=== PATIENT | female | born 1960 | race Caucasian/White ===

== ENCOUNTER 2019-12-21 06:01 | Emergency (ER) | payer OTHER, SELFPAY ==
--- NOTE | ~2019-12-21 | XR_ITS ---
EXAMINATION: XR chest 2V DATE: 12/21/2019 07:52 INDICATION: Cough. Dyspnea. TECHNIQUE: Frontal and lateral views of the chest were obtained. COMPARISON: Chest 2 views 02/02/2008 FINDINGS: The chest demonstrates clear lungs without pneumonia, pleural effusion, or pneumothorax. Th e heart size is normal. IMPRESSION: 1. No acute cardiopulmonary disease. Reviewed, dictated and finalized at location A. 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
[2019-12-21 06:08] VITALS: BP 143/83; PULSE 85; RESP 15; TEMP 36.7; O2SAT 95
[2019-12-21] MEDS: SODIUM CHLORIDE 0.9% IV 1,000 ML 999 ML IV CONT (06:49)
[2019-12-21 06:52] LABS: Basophils Percent Auto 0.2 % (0.2-1.2); Eosinophils Percent Auto 0.2 % (0-4.4); Hemoglobin 13.2 g/dL (12.0-15.0); Immature Granulocyte Absolute 0.02 K/mm3 (0.00-0.031); Immature Granulocyte Percent A 0.4 % (0-0.5); Lymphocytes Absolute Auto 1.27 K/mm3 (0.9-3.2); Lymphocytes Percent Auto 27.7 % (18.3-44.2); Mean Corpuscular HGB Conc 32.2 g/dl (32-36); Mean Corpuscular Hemoglobin 30.4 pg (26-34); Mean Corpuscular Volume 94.5 fl (80-100); Mean Platelet Volume 9.3 fl (7.4-10.4); Monocytes Absolute Auto 0.6 K/mm3 (0.1-0.6); Monocytes Percent Auto 12.4 % (2.6-8.5); Neutrophils Absolute Auto 2.7 K/mm3 (1.3-6.7); Neutrophils Percent Auto 59.1 % (45.5-73.1); Platelet Count Result 211 k/mm3 (150-375); Red Blood Count 4.34 M/mm3 (4.2-5.4); Red Cell Distribution Width 13.4 % (11.5-14.5); White Blood Count 4.6 K/mm3 (4.5-10.0)
--- NOTE | 2019-12-21 06:52 | ECG_ITS ---
Measurements Intervals [place] Rate: 73 P: 21 GA: 137 QRS: 18 QRSD: 97 T: 0 QT: 375 QTc: 414 Interpretive Statements SINUS RHYTHM BORDERLINE T WAVE ABNORMALITY- INFERIOR LEADS BORDERLINE ECG Electronically Signed On 12-21-2019 7:09:51 BALE SEWER by Crow Smith D.O.
--- NOTE | 2019-12-21 06:54 | ED.GENADULT ---
HPI - General Adult General Chief complaint: Upper Respiratory Infection Stated complaint: cough/ congestion/ weakness Time Seen by Provider: 12/21/19 06:03 Source: patient and family Mode of arrival: ambulatory Limitations: no limitations History of Present Illness HPI narrative: The patient is a 59-year-old female who presents for evaluation of cough and shortness of breath. Patient reports over a 4-week history of productive cough. She states that she had been treated with doxycycline and is currently on a course of Levaquin. She reports that she was febrile yesterday to 101 Fahrenheit. She has not noticed much improvement despite antibiotics and steroid treatment. 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 She denies history of smoking, E cigarettes, or vaping. No recent car or travel. No lower extremity swelling, redness. No history of DVT. She reports chest pain only with coughing. She states that she began to feel short of breath this morning while taking a shower. Her shortness of breath worsens with exertion and improves at rest. Related Data Allergies Allergy/AdvReac Type Severity Reaction Status Date / Time Penicillins Allergy Mild RASH Verified 05/17/16 07:12 Sulfa (Sulfonamide Allergy Mild BLISTERS Verified 05/17/16 07:12 Antibiotics) IN MOUTH Review of Systems Review of Systems: Narrative: CONSTITUTIONAL: Reports fever EYES: Denies visual changes, redness, or discharge. ENT: Reports rhinorrhea and congestion CARDIOVASCULAR: Denies chest pain, palpitations, or edema. RESPIRATORY: Reports cough and shortness of breath GASTROINTESTINAL: Denies abdominal pain, nausea, vomiting, or diarrhea. GENITOURINARY: Denies dysuria or hematuria. SKIN: Denies rash or itching. MUSCULOSKELETAL: Denies back pain, joint pain, or myalgia. NEUROLOGIC: Denies headache, numbness, reports feeling weak and fatigued PMFSH Past Medical History Medical History (Updated 12/21/19 @ 08:40 by Zulema Castellanos MD) Hyperlipidemia Hypertension Social History Social History Gender identity (if verbalized by the patient): Female Exam Narrative: Exam Narrative: GENERAL: Well-appearing, well-nourished, and in no acute distress. HEAD: Normocephalic, atraumatic. EYES: PERRLA and EOMI. ENT: Nares clear, no rhinorrhea or epistaxis. Mucous membranes moist. NECK: Supple. CHEST: Upper airway rhonchi, coarse breath sounds, expiratory wheezing in left upper lobe, no crackles, no respiratory distress HEART: Regular rate and rhythm. No murmur heard. Normal peripheral pulses. ABDOMEN: Soft, nontender, nondistended, normal active bowel sounds. EXTREMITIES: Normal range of motion. No edema. No calf tenderness or erythema. SKIN: Warm, dry, no rash. NEURO: No focal deficits. Alert and oriented x3 Course Vital Signs Vital signs: Vital Signs Temperature 36.7 C 12/21/19 06:08 Pulse Rate 85 12/21/19 06:08 Respiratory Rate 15 12/21/19 06:08 Blood Pressure 143/83 H 12/21/19 06:08 Pulse Oximetry 95 12/21/19 06:08 Temperature 36.7 C 12/21/19 07:18 Pulse Rate 72 12/21/19 07:44 Respiratory Rate 14 12/21/19 07:44 Blood Pressure 143/83 H 12/21/19 06:08 Pulse Oximetry 95 12/21/19 06:08 Medical Decision Making MDM Narrative Medical decision making narrative: Patient presenting for evaluation of fever, continued cough despite outpatient antibiotics treatment for pneumonia. Patient been on doxycycline, now on a course of Levaquin. Vital signs are stable, no respiratory distress. She has coarse breath sounds, faint wheezing. Patient treated with DuoNeb treatment and did feel some improvement. Her chest x-ray shows no consolidation. No leukocytosis. She is influenza A positive. Onset of fever and symptoms over 36 hours ago, patient is not within the Tamiflu window. Shared decision-making occurred, patient declined Tamiflu treatment after d
[2019-12-21 07:05] LABS: Alanine Aminotransferase 44 U/L (4-35); Albumin Level 3.9 g/dL (3.5-5.1); Alkaline Phosphatase 87 U/L (38-126); Aspartate Amino Transferase 38 U/L (14-36); Bilirubin,Total 0.4 mg/dL (0.2-1.3); Blood Urea Nitrogen 22 mg/dL (7-17); Calcium 9.3 mg/dL (8.4-10.2); Carbon Dioxide 26 mmol/L (22-30); Chloride 103 mmol/L (98-107); Estimated Glomerular Filt Rate 57; Glucose 121 mg/dL (65-105); Potassium 3.6 mmol/L (3.4-5.0); Sodium 138 mmol/L (137-145)
[2019-12-21 07:18] VITALS: TEMP 36.7
[2019-12-21] MEDS: methylPREDNISolone SOD SUCC 125 MG VIAL IV PUSH (07:27)
[2019-12-21 07:31] VITALS: PULSE 61; RESP 12
[2019-12-21] MEDS: ALBUTEROL SULFATE NEB 2.5 MG/0.5 ML INH 5 MG INHALATION (07:31)
[2019-12-21] MEDS: IPRATROPIUM BR 0.02% INH SOLN 0.5 MG/2.5 ML VIAL INHALATION (07:31)
[2019-12-21 07:37] LABS: Alveolar/Arterial O2 Gradient 26.9 mmHg; Base Excess ABG -0.4 mEq/l (+/-2.0); Carboxyhemoglobin 0.2 % THb (0-2.0); Fractional Inspired Oxygen 21 %; HCO3 ABG 24.6 mEq/l (22.0-26.0); Methemoglobin ABG 0.1 %THb (0-1.5); Oxygen Content ABG 16.8 %vol (16.0-22.0); Oxygen Saturation ABG 94.6 % (95.0-100.0); Oxyhemoglobin 93.2 % THb (90.0-100.0); PCO2 ABG 41.6 mmHg (35.0-45.0); PO2 FiO2 Ratio Arterial Blood 3.48 %; Reduced Hemoglobin 6.5 %THb (0-5.0); Total Hemoglobin 12.8 g/dL (12.0-18.0); pH ABG 7.389 (7.350-7.450)
[2019-12-21 07:38] LABS: Device ROOM AIR; Site Drawn LEFT BRACHIAL
[2019-12-21 07:44] VITALS: PULSE 72; RESP 14
[2019-12-21 07:45] LABS: INR 0.9; Prothrombin Time 12.3 Seconds (11.1-14.7)
[2019-12-21 07:46] LABS: Partial Thromboplastin Time 22.2 SECONDS (22.3-36.8)
[2019-12-21 07:56] LABS: NT Pro B Type Natriuretic Pept 29 PG/ML (5-100); Troponin I < 0.012 ng/mL (0.000-0.034)
[2019-12-21 08:41] LABS: Add Urine Microscopic? YES; Appearance Urine Cloudy (Clear); Bacteria Urine Trace /hpf; Bilirubin Urine Negative (Negative); Blood Urine Negative (Negative); Color Urine Yellow (Yellow); Glucose Urine UA Negative (Negative); Hyaline Casts Urine 30-49 /lpf; Ketones Urine Negative (Negative); Leukocyte Esterase Ur Negative LEU/UL (Negative); Mucus Urine Moderate /lpf; Nitrate Urine Negative (Negative); Protein Urine 1+ mg/dL (Negative); RBC Urine 0-2 /hpf (0-2); Specific Grav Ur 1.025 (1.001-1.035); Squamous Epithelial Cell Urine Many /hpf (Few); Urobilinogen Urine Negative mg/dL (<2.0)
[2019-12-21 09:24] VITALS: BP 107/68; PULSE 75; RESP 14; O2SAT 96
--- NOTE | 2019-12-28 11:43 | PC.NURSE ---
LATE ENTRY This note is being entered to document information to the patient's record. The following information was omitted on [12/21/2019], by [Rob Montalvo]. NS stop time [id number]
== END 2019-12-21 09:30 | disposition home or self-care (01) ==
PROVIDERS: Emergency Provider Emergency Medicine
DX: J10.1 Influenza due to other identified influenza virus with other respiratory manifestations (principal); E78.5 Hyperlipidemia, unspecified; I10 Essential (primary) hypertension; R94.31 Abnormal electrocardiogram [ECG] [EKG]; R82.998 Other abnormal findings in urine
CPT/HCPCS: 36415; 36600; 71046; 80053; 81001; 82375; 82805; 83050; 83880; 84484; 85025; 85610; 85730; 87040; 87086; 87804; 93005; 96361; 96365; 96375; 99284; J0131; J2930; J7030

== ENCOUNTER 2020-09-02 09:20 | Outpatient (CLI) | payer OTHER, SELFPAY ==
--- NOTE | ~2020-09-02 | MM_ITS ---
EXAMINATION: MM screening [facility] BI w tari HISTORY: Screening mammogram TECHNIQUE: Craniocaudal and mediolateral oblique 3-D tomosynthesis images were obtained and synthetic 2-D images were generated. CAD analysis was submitted and interpreted. COMPARISON: 07/06/2019, 06/06/2018, 05/11/2016 bilateral digital screening mammogram examinations BREAST PARENCHYMAL COMPOSITION: There are scattered areas of fibroglandular density. FINDINGS: There is mild stable fibroglandular asymmetry. There is no evidence of suspicious mass, patti cification, or architectural distortion to suggest malignancy in either breast. There has been no miguel ángel picious interval change. IMPRESSION: 1. No mammographic evidence of malignancy. 2. Recommend routine screening mammography in one year. BI-RADS Category 2: Benign finding(s). Reviewed, dictated and finalized at location A.
== END 2020-09-02 09:21 | disposition home or self-care (01) ==
LOC: ANHIMG 09:23
PROVIDERS: PCP Physician Assistant; Visit Provider Physician Assistant
DX: Z12.31 Encounter for screening mammogram for malignant neoplasm of breast (principal)
CPT/HCPCS: 77063; 77067

== ENCOUNTER → 2020-12-05 17:15 | Outpatient (CLI) | payer OTHER, SELFPAY ==
--- NOTE | ~2020-12-05 | DEXA_ITS ---
Bone Density Report Name: Mary Groves Age: 60 Sex: Female Ethnicity: White Date of : 1960 Indication: postmenopausal; screening for osteoporosis; height loss; Referring Provider: AUGUSTIEN VIDAL Study: Bone densitometry was performed. Exam Date: December 05, 2020 Accession number: [id number] Bone Density: Region BMD T-score Z-score Classification AP Spine (L1-L4) 1.159 1.0 2.3 Normal Femoral Neck (Left) 1.134 2.6 3.8 Normal Total Hip (Left) 1.252 2.5 3.4 Normal Femoral Neck (Right) 1.123 2.5 3.7 Normal Total Hip (Right) 1.254 2.6 3.4 Normal Total Hip Mean 1.253 2.6 3.4 Normal World Health Organization criteria for BMD impression classify patients as: Normal (T-score at or above -1.0), Osteopenia (T-score between -1.0 and -2.5), or Osteoporosis (T-score at or below -2.5). 10-year Fracture Risk: FRAX not reported because: All T-scores for Spine Total, Hip Total, Femoral Neck at or above -1.0 Clinical Information Provided by Patient: Patient maximum height was 69 Menopause Age: 56 No regular weight bearing exercise Does not regularly consume dairy products Drinks caffeinated beverages Onset of menses at age 16 Number of children 3 Impression: The patient has normal bone mass. Discussion: LOW RISK OF FRACTURE; BONE DENSITY IS WELL ABOVE THE MINIMUM DESIRABLE LEVEL AND ABOVE AVERAGE FOR AGE AND SEX AT ALL SKELETAL SITES TESTED. This person's bone density is above expected limits for age and sex. This is rarely clinically significant, but should be pursued if there are significant musculoskeletal complaints. The patient should follow a healthful lifestyle (good nutrition with adequate calcium and vitamin D, and appropriate weight-bearing exercise). Follow-Up: Consider repeating this study in 5 years or sooner if there is some new clinical indication. Reported by: MAUDE on 12/05/2020 5:31:00 PM. Reviewed, dictated and finalized at location AChen FRANK
== END ==
PROVIDERS: PCP Physician Assistant; Visit Provider Obstetrics & Gynecology Gynecology
DX: Z78.0 Asymptomatic menopausal state (principal)
CPT/HCPCS: 77080

== ENCOUNTER → 2021-04-12 09:10 | Outpatient (CLI) | payer OTHER, SELFPAY ==
--- NOTE | ~2021-04-12 | XR_ITS ---
EXAMINATION: XR foot LT min 3V DATE: 04/12/2021 09:25 INDICATION: Left foot pain TECHNIQUE: Dorsoplantar, two oblique and lateral views of the left foot were obtained. COMPARISON: None. FINDINGS: Alignment is normal. No fracture. Mild osteoarthritis at a few of the tarsal metatarsal and interphal angeal joints. Small Achilles and plantar calcaneal spurs. Soft tissues are unremarkable. No ankle maximiliano int effusion. IMPRESSION: 1. Mild polyarticular osteoarthritis in the mid and forefoot. No acute osseous abnormality. Reviewed, dictated and finalized at location A.
== END ==
PROVIDERS: PCP Physician Assistant; Visit Provider Physician Assistant
DX: M19.072 Primary osteoarthritis, left ankle and foot (principal)
CPT/HCPCS: 73630

== ENCOUNTER 2021-09-15 08:21 | Outpatient (CLI) | payer OTHER, SELFPAY ==
--- NOTE | ~2021-09-15 | MM_ITS ---
EXAMINATION: MM screening [facility] BI w tari HISTORY: Screening TECHNIQUE: Craniocaudal and mediolateral oblique 3-D tomosynthesis images were obtained and synthetic 2-D images were generated. CAD analysis was submitted and interpreted. COMPARISON: Comparison to multiple prior studies sequentially, with oldest reviewed study dated 09/18. BREAST PARENCHYMAL COMPOSITION: There are scattered areas of fibroglandular density. FINDINGS: There is no evidence of suspicious mass, calcification, or architectural distortion to sugg est malignancy in either breast. There has been no suspicious interval change. IMPRESSION: 1. No mammographic evidence of malignancy. 2. Recommend routine screening mammography in one year. BI-RADS Category 1: Negative Reviewed, dictated and finalized at location A.
== END 2021-09-15 08:22 | disposition home or self-care (01) ==
LOC: ANHIMG 08:24
PROVIDERS: PCP Physician Assistant; Visit Provider Physician Assistant
DX: Z12.31 Encounter for screening mammogram for malignant neoplasm of breast (principal)
CPT/HCPCS: 77063; 77067